=== PATIENT | female | born 1965 | race Caucasian/White ===

== ENCOUNTER 2019-07-07 19:06 | Emergency (ER) | payer MEDICAID ==
[~2019-07-07] VITALS: Ht 172.7 cm; Wt 150.0 kg
[2019-07-07] MEDS ORDERED: PRED20TA PO (20:32)
[2019-07-07] MEDS ORDERED: LEVO750T21 PO (20:32)
[2019-07-07 20:50] VITALS: BP 148/38
== END 2019-07-07 20:51 | disposition home or self-care (01) ==
LOC: ER 19:08
DX: J40 Bronchitis, not specified as acute or chronic (principal); Z79.2 Long term (current) use of antibiotics; Z79.899 Other long term (current) drug therapy; Z88.6 Allergy status to analgesic agent; Z88.5 Allergy status to narcotic agent
CPT/HCPCS: 99283